=== PATIENT | male | born 1960 | race Caucasian/White ===

== ENCOUNTER 2021-09-30 14:24 | Emergency (ER) | payer OTHER ==
[~2021-09-30] VITALS: Ht 193 cm; Wt 130.2 kg
--- NOTE | 2021-09-30 14:49 | PHYS DOC ---
General Adult EDM: Chief Complaint: FLANK PAIN HPI: HPI: Patient is a 61-year-old male who presents to the emergency department today for left flank pain that started 2 days ago. He rates his pain 4 out of 10. Occasionally the pain does radiate into his left groin. He is also reporting hematuria. He denies any injury, dysuria, nausea, vomiting, fever. He has history of A. fib is on Xarelto. He denies any history of kidney stones. (LUANA ADAM APRN) Review of Systems: Review of Systems: Constitutional: See HPI GI: See HPI : See HPI Musculoskeletal: See HPI (LUANA ADAM APRN) Physical Exam: PE: Constitutional: Well developed, well nourished, no acute distress, non-toxic appearance. [] HENT: Normocephalic, atraumatic, bilateral external ears normal, oropharynx moist, no oral exudates, nose normal. [] Eyes: PERRL, EOMI, conjunctiva normal, no discharge. [] Neck: Normal range of motion, no tenderness, supple, no stridor. [] Cardiovascular:Heart rate regular rhythm, no murmur [] Lungs & Thorax: Bilateral breath sounds clear to auscultation [] Abdomen: Bowel sounds normal, soft, no tenderness, no masses, no pulsatile masses. [] Skin: Warm, dry, no erythema, no rash. [] Back: No tenderness, no CVA tenderness. [] Extremities: No tenderness, no cyanosis, no clubbing, ROM intact, no edema. [] Neurologic: Alert and oriented X 3, normal motor function, normal sensory function, no focal deficits noted. [] Psychologic: Affect normal, judgement normal, mood normal. [] (LUANA ADAM APRN) Current Patient Data: Labs: Laboratory Tests Test 09/30/21 14:42 09/30/21 15:08 Urine Collection Type Clean catch Urine Color Yellow Urine Clarity Clear Urine pH 5.5 Urine Specific [place] 1.010 Urine Protein Neg Urine Glucose (UA) Neg mg/dL Urine Ketones (Stick) Neg mg/dL Urine Blood Large Urine Nitrite Neg Urine Bilirubin Neg Urine Urobilinogen Dipstick 0.2 mg/dL Urine Leukocyte Esterase Neg Urine RBC 1-2 /HPF Urine WBC 0 /HPF Urine Squamous Epithelial Cells Occ /LPF Urine Bacteria 0 /HPF White Blood Count 7.1 x10^3/uL Red Blood Count 4.72 x10^6/uL Hemoglobin 14.8 g/dL Hematocrit 44.1 % Mean Corpuscular Volume 94 fL Mean Corpuscular Hemoglobin 31 pg Mean Corpuscular Hemoglobin Concent 34 g/dL Red Cell Distribution Width 14.3 % Platelet Count 207 x10^3/uL Neutrophils (%) (Auto) 57 % Lymphocytes (%) (Auto) 35 % Monocytes (%) (Auto) 5 % Eosinophils (%) (Auto) 2 % Basophils (%) (Auto) 1 % Neutrophils # (Auto) 4.0 x10^3uL Lymphocytes # (Auto) 2.5 x10^3/uL Monocytes # (Auto) 0.4 x10^3/uL Eosinophils # (Auto) 0.1 x10^3/uL Basophils # (Auto) 0.0 x10^3/uL Sodium Level 139 mmol/L Potassium Level 4.0 mmol/L Chloride Level 104 mmol/L Carbon Dioxide Level 30 mmol/L Anion Gap 5 Blood Urea Nitrogen 13 mg/dL Creatinine 0.8 mg/dL Estimated GFR (Cockcroft-Gault) 98.6 BUN/Creatinine Ratio 16 Glucose Level 131 mg/dL Calcium Level 9.3 mg/dL Total Bilirubin 0.6 mg/dL Aspartate Amino Transf (AST/SGOT) 30 U/L Alanine Aminotransferase (ALT/SGPT) 59 U/L Alkaline Phosphatase 120 U/L Total Protein 7.5 g/dL Albumin 3.9 g/dL Albumin/Globulin Ratio 1.1 Lipase 156 U/L Current Medications Medications (Trade) Dose Ordered Sig/Ehsan Route PRN Reason Start Time Stop Time Status Last Admin Dose Admin Sodium Chloride 1,000 ml @ 1,000 mls/hr 1X ONCE IV 09/30/21 15:00 09/30/21 15:59 DC 09/30/21 15:13 Ketorolac Tromethamine (Toradol 15mg Vial) 15 mg 1X ONCE IVP 09/30/21 15:00 09/30/21 15:08 DC 09/30/21 15:13 (LUANA ADAM APRN) EKG: EKG: [] (LUANA ADAM APRN) Radiology/Procedures: Radiology/Procedures: []STATUS: REG ERORD. PHYSICIAN: LUANA ADAM APRN REASON: FLANK PAIN R/O STONE, BILAT PAIN-WORSE ON LEFT PROCEDURE: CT ABDOMEN PELVIS WO CONTRAST CT ABDOMEN+PELVIS WO History: Reason: FLANK PAIN R/O STONE, BILAT PAIN-WORSE ON LEFT / Spl. Instructions: / History: Technique: Noncontrast examination of the abdomen and pelvis. Coronal and sagittal reconstructions were performed. Exposure: One or more of the following individualized dose reduction techniques were utilized for this examination: 1. Automated exposure control 2. Adjustment of the mA and/or kV according to patient size 3. Use of iterative reconstruction technique. Comparison: None Findings: Lower chest: No consolidation or pleural effusion. Abdomen and pelvis: The liver, spleen, adrenal glands, pancreas and gallbladder are unremarkable. No biliary ductal dilatation. No renal calculus. No hydronephrosis. No ureteral or urinary bladder calculus. Mild urinary bladder wall thickening. Mild colonic diverticulosis. Normal appendix. No evidence of bowel obstruction. No pathologic lymphadenopathy. No ascites. Bones: Mild retrolisthesis L3 on L4. Mild lumbar spondylosis. Impression: 1. No obstructing urolithiasis. 2. Mild urinary bladder wall thickening, can be seen with chronic outlet obstruction. Correlate for cystitis. Electronically signed by: Antony Stratton DO (09/30/2021 3:58 PM) [facility] DICTATED AND SIGNED BY: ANTONY STRATTON DO DATE: 09/30/21 1545 CC: MARGIE MEZA; LUANA ADAM APRN ~ (LUANA ADAM APRN) Heart Score: C/O Chest Pain: N/A Risk Factors: Risk Factors: DM, Current or recent (<one month) smoker, HTN, HLP, family history of CAD, obesity. Risk Scores: Score 0 - 3: 2.5% MACE over next 6 weeks - Discharge Home Score 4 - 6: 20.3% MACE over next 6 weeks - Admit for Clinical Observation Score 7 - 10: 72.7% MACE over next 6 weeks - Early Invasive Strategies (LUANA ADAM APRN) Course & Med Decision Making: Course & Med Decision Making Pertinent Labs and Imaging studies reviewed. (See chart for details) [] Patient presents to the emergency department for left flank pain and hematuria. Work-up in the ER consisted of blood work including lipase as pain does radiate to his left lower quadrant. Urinalysis as well as CT imaging of abdomen and pelvis performed to rule out stone. Patient treated with IV fluids and pain medication. Blood work is unremarkable. CT scan shows wall thickening of his bladder to correlate with cystitis, patient's urinalysis does not show any signs of cystitis there is a large amount of blood. Patient is advised to follow-up with a urologist. I discussed with patient all findings and diagnostic testing as well as the need to follow-up with PCP for further evaluation and treatment or return to the ER if any new or worsening symptoms. Strict return precautions were also discussed at length. Patient voiced understanding and agreement with the plan. Patient is hemodynamically stable at the time of disposition. (LUANA ADAM APRN) Dragon Disclaimer: Dragon Disclaimer: This electronic medical record was generated, in whole or in part, using a voice recognition dictation system. (LUANA ADAM APRN) Attending Co-Sign The patient was seen and interviewed as well as examined at the bedside. The chart was reviewed. The case was discussed. Agree with the plan of care. (CHELI VALENTE DO) Departure Departure: Impression: Primary Impression: Flank pain Additional Impression: Hematuria Qualified Codes: R31.9 - Hematuria, unspecified Disposition: HOME / SELF CARE / HOMELESS Condition: GOOD Referrals: MARGIE MEZA (PCP) Patient Instructions: Flank Pain, [id number], Hematuria, Adult Additional Instructions: You were seen in the emergency department today for flank pain and blood in your urine. Your blood work was unremarkable. Your urine did not show any infection. The CT scan of your abdomen shows thickening of your bladder. You need to see a urologist regarding this finding. Please follow-up with the urologist that was attached to your discharge paperwork. I would advise you to call them in the morning to set up a follow-up appointment. You are being discharged home with pain medication he can take as needed for severe pain. This medication is hydrocodone and Tylenol and a combination tablet. This medication may cause sedation so do not take when you need to be alert, driving a vehicle or with alcohol. Return to the emergency department if you develop intractable nausea or vomiting, high fevers refractory to treatment, abdominal pain, worsening of your back pain. [facility] Scripts Hydrocodone Bit/Acetaminophen (HYDROCODONE-APAP 5-325 ) 1 Each Tablet 1 TAB PO PRN Q6HRS PRN for PAIN for 2 Days, #8 TAB 0 Refills Prov: LUANA ADAM APRN 09/30/21 LUANA ADAM APRN Sep 30, 2021 14:49 CHELI VALENTE DO Oct 01, 2021 08:00
[2021-09-30] MEDS ORDERED: IV NORMAL SALINE 1,000ML 1,000 ML IV ONE (15:00)
[2021-09-30] MEDS ORDERED: KETOROLAC 15 MG/ML VIAL. IVP ONE (15:00)
[2021-09-30 15:26] LABS: BASO % 1 % (0-3); EOS # 0.1 x10^3/uL (0.0-0.7); EOS % 2 % (0-3); HEMATOCRIT 44.1 % (39.0-53.0); HEMOGLOBIN 14.8 g/dL (13.0-17.5); LYMPH # 2.5 x10^3/uL (1.0-4.8); LYMPH % 35 % (24-48); MEAN CORPUSCULAR HEMOGLOBIN 31 pg (25-35); MEAN CORPUSCULAR HGB CONC 34 g/dL (31-37); MEAN CORPUSCULAR VOLUME 94 fL (79-100); MONO # 0.4 x10^3/uL (0.0-1.1); MONO % 5 % (0-9); NEUT % 57 % (31-73); PLATELET COUNT 207 x10^3/uL (140-400); RED BLOOD COUNT 4.72 x10^6/uL (4.30-5.70); RED CELL DISTRIBUTION WIDTH 14.3 % (11.5-14.5); WHITE BLOOD COUNT 7.1 x10^3/uL (4.0-11.0)
[2021-09-30 15:30] LABS: CALCIUM 9.3 mg/dL (8.5-10.1); CREATININE 0.8 mg/dL (0.7-1.3); GFR 98.6
[2021-09-30 15:35] LABS: ALBUMIN 3.9 g/dL (3.4-5.0); ALBUMIN/GLOBULIN RATIO 1.1 (1.0-1.7); TOTAL BILIRUBIN 0.6 mg/dL (0.2-1.0); TOTAL PROTEIN 7.5 g/dL (6.4-8.2)
[2021-09-30 15:36] LABS: CLARITY,URINE CLEAR; COLOR,URINE YELLOW
[2021-09-30 15:37] LABS: BACTERIA,URINE 0 /HPF (0-FEW); GLUCOSE,URINE NEG (NEG); NITRITE,URINE NEG (NEG); SQUAMOUS EPITHELIAL CELL,UR OCC /LPF; UROBILINOGEN,URINE 0.2 mg/dL (0.2 mg/dL); WBC,URINE 0 /HPF (0-4)
--- NOTE | 2021-09-30 16:01 | RAD ---
CT ABDOMEN+PELVIS WO History: Reason: FLANK PAIN R/O STONE, BILAT PAIN-WORSE ON LEFT / Spl. Instructions: / History: Technique: Noncontrast examination of the abdomen and pelvis. Coronal and sagittal reconstructions we re performed. Exposure: One or more of the following individualized dose reduction techniques were utilized for thi s examination: 1. Automated exposure control 2. Adjustment of the mA and/or kV according to patient size 3. Use of iterative reconstruction technique. Comparison: None Findings: Lower chest: No consolidation or pleural effusion. Abdomen and pelvis: The liver, spleen, adrenal glands, pancreas and gallbladder are unremarkable. No biliary ductal dilatation. No renal calculus. No hydronephrosis. No ureteral or urinary bladder calculus. Mild urinary bladder w all thickening. Mild colonic diverticulosis. Normal appendix. No evidence of bowel obstruction. No pathologic lymphad enopathy. No ascites. Bones: Mild retrolisthesis L3 on L4. Mild lumbar spondylosis. Impression: 1. No obstructing urolithiasis. 2. Mild urinary bladder wall thickening, can be seen with chronic outlet obstruction. Correlate for cystitis. Electronically signed by: Antony Stratton DO (09/30/2021 3:58 PM) [facility]
[2021-09-30] MEDS ORDERED: HYDR-2155 PO (16:08)
[2021-09-30 16:25] VITALS: BP 128/81
== END 2021-09-30 16:30 | disposition home or self-care (01) ==
LOC: ER 14:24
DX: R10.9 Unspecified abdominal pain (principal); R31.9 Hematuria, unspecified; I48.91 Unspecified atrial fibrillation; Z79.01 Long term (current) use of anticoagulants
CPT/HCPCS: 36415; 74176; 80053; 81001; 83690; 85025; 96361; 96374; 99284; J1885; J7030